=== PATIENT | female | born 1995 | race Caucasian/White ===

== ENCOUNTER 2017-08-09 13:40 | Emergency (ER) | payer OTHER ==
[2017-08-09 14:54] LABS: ADD MAN DIFF? NO
[2017-08-09 14:59] LABS: WHITE BLOOD COUNT 8.4 10^3/ul (4.8-10.8)
[2017-08-09 14:59] LABS: BASOPHILS % 0.5 % (0.0-2.0); EOSINOPHILS # 0.4 10^3/ul (0.0-0.5); EOSINOPHILS % 4.2 % (0.0-7.0); HEMOGLOBIN 10.8 g/dl (12.0-16.0); LYMPHOCYTES % 36.2 % (15.0-51.0); MEAN CORPUSCULAR HEMOGLOBIN 21.4 pg (29.0-33.0); MEAN CORPUSCULAR VOLUME 71.3 fl (82.0-101.0); MEAN PLATELET VOLUME 9.6 fl (7.4-10.4); MONOCYTE # 0.5 10^3/ul (0.3-0.9); MONOCYTES % 6.1 % (0.0-11.0); NEUTROPHIL # 4.4 10^3/ul (1.6-7.5); NEUTROPHILS % 52.6 % (39.0-77.0); PLATELET COUNT 392 10^3/UL (140-415); RED BLOOD COUNT 5.05 10^6/ul (4.20-5.40); RED CELL DISTRIBUTION WIDTH 17.8 % (11.5-14.5)
[2017-08-09] MEDS: SOD CHLORIDE 0.9% 1,000 ML IV (14:59)
[2017-08-09 15:19] LABS: ALANINE AMINOTRANSFERASE 36 IU/L (13-69); ALBUMIN 4.5 g/dl (3.3-4.9); ALBUMIN/GLOBULIN RATIO 1.15; ALKALINE PHOSPHATASE 74 IU/L (42-121); ANION GAP 17 (8-16); ASPARTATE AMINO TRANSFERASE 32 IU/L (15-46); BILIRUBIN,INDIRECT 0.4 mg/dl (0-1.1); BILIRUBIN,TOTAL 0.4 mg/dl (0.2-1.3); BLOOD UREA NITROGEN 16 mg/dl (7-20); CARBON DIOXIDE 25 mmol/L (21-31); CHLORIDE 106 mmol/L (97-110); CREATININE 0.56 mg/dl (0.44-1.00); GLUCOSE 69 mg/dl (70-220); INR 0.93; POTASSIUM 3.9 mmol/L (3.5-5.1); PROTIME 12.5 Sec (11.9-14.9); SODIUM 144 mmol/L (135-144); TOTAL PROTEIN 8.4 g/dl (6.1-8.1)
[2017-08-09 15:20] LABS: PARTIAL THROMBOPLASTIN TIME 26.8 Sec (25.0-35.0)
[2017-08-09 15:23] LABS: AMYLASE 47 U/L (11-123)
[2017-08-09 15:23] LABS: LIPASE 126 U/L (23-300)
[2017-08-09] MEDS: IOHEXOL 300MG/ML 150 ML BTL (16:33)
[2017-08-09] MEDS: SOD CHLORIDE 0.9% 100 ML (16:33)
[2017-08-09] MEDS: KETOROLAC 30 MG INJ IV (17:30)
[2017-08-09] MEDS: DIPHTH/TET/ACEL PERTUSS (ADULT) 0.5 ML VIAL IM* (18:25)
== END 2017-08-09 18:35 | disposition home or self-care (01) ==
LOC: E/R 13:40
DX: S39.81XA Other specified injuries of abdomen, initial encounter (principal); S61.452A Open bite of left hand, initial encounter; R10.9 Unspecified abdominal pain; Y04.1XXA Assault by human bite, initial encounter; Z23 Encounter for immunization
CPT/HCPCS: 70490; 74177; 80053; 81025; 82150; 83690; 84703; 85025; 85610; 85730; 90471; 90715; 99285-25